=== PATIENT | male | born 1950 | race Caucasian/White ===

== ENCOUNTER 2023-11-25 08:30 | Outpatient (REF) | payer MEDICARE, SELFPAY ==
[2023-11-25 14:43] LABS: MANUAL DIFF FLAG NO
[2023-11-25 14:55] LABS: Basophils Absolute Auto 0.1 X10*3/uL (0.0-0.2); Basophils Percent Auto 0.7 % (0-2); Eosinophils Absolute Auto 0.2 X10*3/uL (0.0-0.4); Eosinophils Percent Auto 2.3 % (0-4); Hematocrit 45.5 % (42.0-52.0); Hemoglobin 14.8 g/dl (14.0-18.0); Imm Gran Abs Auto 0.03 X10*3/uL (0.00-0.03); Imm Gran Pct Auto 0.3 % (0.0-0.4); Lymphocytes Absolute Auto 3.1 X10*3/uL (1.2-4.9); Lymphocytes Percent Auto 33.2 % (20-40); Mean Corpuscular HGB Conc 32.5 g/dl (31.0-36.0); Mean Corpuscular Hemoglobin 31.2 pg (27.0-33.0); Mean Corpuscular Volume 95.8 fL (80.0-98.0); Mean Platelet Volume 11.5 fL (9.4-12.4); Monocytes Absolute Auto 0.7 X10*3/uL (0.1-1.2); Monocytes Percent Auto 7.4 % (2-11); Neutrophils Absolute Auto 5.2 x10*3/uL (2.0-8.3); Neutrophils Percent Auto 56.1 % (45-73); Platelet Count 214 X10*3/uL (160-400); Red Blood Count 4.75 X10*6/uL (4.60-5.80); Red Cell Distribution Width 13.2 % (11.0-16.0); White Blood Count 9.2 X10*3/uL (4.8-10.8)
[2023-11-25 15:19] LABS: Alanine Aminotransferase 10 U/L (0-40); Albumin Level 4.1 g/dL (3.5-5.0); Alkaline Phosphatase 56 U/L (39-117); Anion Gap 11 (12-20); Aspartate Amino Transferase 14 U/L (5-37); Bilirubin Total 0.5 mg/dL (0.0-1.0); Blood Urea Nitrogen 16 mg/dL (9-16); Calcium 9.3 mg/dL (8.4-10.2); Carbon Dioxide 26 mmol/L (22-29); Chloride 108 mmol/L (96-108); Cholesterol 162 mg/dL (<200); Estimated Glomerular Filt Rate > 60; Glucose Random 68 mg/dL (60-115); HDL Cholesterol 41 mg/dL (>40); LDL Cholesterol Calculated 109 mg/dL (<100); Potassium 3.7 mmol/L (3.3-5.1); Sodium 141 mmol/L (135-145); Total Protein 6.7 g/dL (6.5-8.0); Triglycerides 61 mg/dL (<150)
[2023-11-25 15:34] LABS: TSH reflex Free T4 2.08 uIU/mL (0.32-4.0)
[2023-11-26 08:03] LABS: ~Hepatitis C Antibody Nonreactive (Nonreactive)
== END 2023-11-25 08:31 | disposition home or self-care (01) ==
LOC: HO.CHCLDS 08:30
PROVIDERS: Visit Provider Internal Medicine
DX: K21.9 Gastro-esophageal reflux disease without esophagitis (principal)
CPT/HCPCS: 36415; 80053; 80061; 84443; 85025; 86803

== ENCOUNTER 2023-11-30 09:03 | Outpatient (AMB) | payer MEDICARE, SELFPAY ==
--- NOTE | 2023-11-30 09:19 | A.OFFVIS_ITS ---
Intake Vital Signs 11/30/23 09:29 Height 5 ft 9 in Weight 245 lb 8 oz BMI 36.3 BP 100/70 Blood Pressure Location Lt brachial Position Sitting Pulse 69 Pulse Source Pulse Oximeter Pulse Oximetry (%) 98 Oxygen Delivery Method Room Air Intake Visit Reasons: ENP-RAMANDEEP -Confirmed Intake Note: Patient presents for RAMANDEEP. patient falls asleep during the day for 2 to 3 hours without realising it Allergies No Known Allergies [No Known Allergies*] Allergy (Verified 11/30/23 09:26) Medication List - Last Reconciled 11/30/23 by Patricia Anglin CNP acetaminophen ER 650 mg PO Q8H PRN flu vac 2022 [id number]-pomVU23D(PF) 60 mcg (15 mcg x 4)/0.5 mL (Fluad Quad 2022- 2023(65yr up)(PF)) IM omeprazole 40 mg PO DAILY sertraline (Zoloft) 50 mg PO DAILY HPI HPI Comments History of Present Illness Details 73 y/o male patient presents for new in- person visit to manage sleep apnea. Pt reports he was diagnosed with RAMANDEEP in 1994. He had a repeat sleep study done in 2009, he used CPAP for a while. However his insurance did not cover CPAP and supplies, so he returned it. Pt reports he has disrupted sleep at night, wakes up several times. He is having daytime sleepiness, keep falling asleep during daytime, Sleep questionnaire: Have you ever been diagnosed with a sleep disorder? Yes. Have you ever had a sleep study in the past? Yes, twice. Have you ever been treated for a sleep disorder? CPAP. Do you take medications for a sleep disorder? No. Do you snore? Maybe. Do you wake up gasping at night? No. Do you have episodes of apneas? Yes. If yes, are they witnessed? Yes. Do you have episodes of nocturnal chest pain or dyspnea? No. Do you have difficulty initiating sleep? No. Do you have difficulty maintaining sleep? Yes. Do you wake up tired? Yes. Do you have headaches upon awakening? No. Do you wake up with dry mouth or throat? Yes. Do you have GERD? Yes. Do you have nocturia? No. Do you have nocturnal leg cramps? No. Do you have symptoms of restless legs? No. Do you act out your dreams? No. Sleep hygiene questionnaire: What is your usual sleep routine? Usual bedtime is at 1 am; Usual wake up time is at 4 am. Do you take naps? Yes. Is your sleep environment cool, dark, and quiet? Yes. Do you exercise? No. Do you take caffeine or other stimulants? Coffee in the morning. Do you use electronics in bed? Yes. What is your work schedule? N/A. Hypersomnolence questionnaire: Do you have daytime tiredness or fatigue? Yes. Do you easily fall asleep when inactive? Yes. Have you ever had episodes of sudden weakness? No. Have you ever had episodes of sudden weakness associated with strong emotions? No. PFSH Surgical History (Updated 11/30/23 @ 09:41 by Jennifer Betts CMA) History of shoulder surgery Family History (Updated 11/30/23 @ 09:43 by Jennifer Betts CMA) Father Brain cancer Mother Breast CA Brother Brain cancer Social History (Updated 11/30/23 @ 09:44 by Jennifer Betts CMA) Alcohol intake: never Patient Tobacco Use Status: Never used Tobacco Review of Systems Const All systems reviewed & are unremarkable except as noted in HPI and below Physical Exam Vital Signs: Last Vital Signs Pulse 69 11/30/23 09:29 BP 100/70 11/30/23 09:29 Pulse Ox 98 11/30/23 09:29 Oxygen Delivery Method Room Air 11/30/23 09:29 BMI result Body Mass Index 36.3 Const General: cooperative Nutritional Appearance: obese Orientation/consciousness: patient oriented x3 Neck Neck: Yes full ROM and Yes supple Resp Effort & Inspection: normal respiratory effort and able to speak in complete sentences Neuro General: patient oriented x3 and gait normal Cranial nerves: Yes CN's II-XII intact bilaterally Cognition (Neuro): normal cognition Gait exam (Neuro): Normal gait present Motor exam (neuro): 5/5 motor strength present throughout Psych Appearance: grossly normal Mental Status: mental status grossly normal Speech and movement: Normal speech and movement present Affect: normal affect Attitude: cooperative Assessment & Plan Assessment & Plan (1) Daytime sleepiness: Code(s): R40.0 - Somnolence (2) Hx of sleep apnea: Code(s): Z86.69 - Personal history of other diseases of the nervous system and sense organs Plan Pt is advised to undergo in lab sleep study to assess for sleep apnea. Will f/u with pt after study to discuss results and appropriate treatment options. Sleep hygiene education provided and wt reduction advised. Pt to call with any worsening concerns or questions. Orders: Orders RT PSG in-lab sleep study Today R40.0 - Somnolence, Z86.69 - Personal history of other diseases of the nervous system and sense organs Coding Level of Care Code New Pt Level 3 (18691) Diagnoses Daytime sleepiness R40.0 Hx of sleep apnea Z86.69
[2023-11-30 09:29] VITALS: BP 100/70; PULSE 69; O2SAT 98; BMI 36.3
== END 2023-11-30 09:50 | disposition home or self-care (01) ==
PROVIDERS: PCP Internal Medicine; Visit Provider Nurse Practitioner Family
DX: R40.0 Somnolence (principal); Z86.69 Personal history of other diseases of the nervous system and sense organs
CPT/HCPCS: 99203

== ENCOUNTER → 2023-11-30 09:03 | Outpatient (BNVA) | payer MEDICARE, SELFPAY | PROVIDERS: PCP Internal Medicine; Visit Provider Nurse Practitioner Family | DX: R40.0 Somnolence (principal); Z86.69 Personal history of other diseases of the nervous system and sense organs | CPT/HCPCS: 99202 ==

== ENCOUNTER 2023-12-03 09:12 | Outpatient (AMB) | payer MEDICARE, SELFPAY ==
--- NOTE | 2023-12-03 09:21 | A.OFFVIS_ITS ---
Intake Intake Visit Reasons: LDCT SD Allergies No Known Allergies [No Known Allergies*] Allergy (Verified 11/30/23 09:26) HPI HPI Comments History of Present Illness Details Alejandro is a pleasant 73 year old male, current 1/2-3/4 ppd smoker with a 21.5 PYH. Patient has been smoking since age 20 for 43 years at 1/2 ppd, quit for 10-15 years in 1992. Denies marijuana use. Denies exposure to chemicals or substances like asbestos. Denies second hand smoke exposure. Reports brother had lung cancer. Denies personal history of cancers. Denies chest CT in last year. Denies recent travel outside the [place]. Denies testing positive for COVID. Admits receiving COVID Vaccine x2 Denies fever, chills, chest pain, new cough, hemoptysis or unintentional weight loss. Lung Cancer Screening Questionnaire reviewed with patient by provider. Shared Decision Making Completed. Discussed in detail with patient, the risk versus benefit of LDCT screening. Patient in agreement of proceeding with scan. [facility] Surgical History (Updated 11/30/23 @ 09:41 by Jennifer Betts CMA) History of shoulder surgery Family History (Updated 11/30/23 @ 09:43 by Jennifer Betts CMA) Father Brain cancer Mother Breast CA Brother Brain cancer Social History (Updated 11/30/23 @ 09:44 by Jennifer Betts CMA) Alcohol intake: never Patient Tobacco Use Status: Never used Tobacco Assessment & Plan Assessment & Plan (1) Nicotine dependence: Code(s): F17.200 - Nicotine dependence, unspecified, uncomplicated Plan Shared decision-making visit completed today in office. This patient meets criteria for LDCT for lung cancer screening purposes and is asymptomatic. Offered smoking cessation. Patient has been scheduled for a low dose chest CT for screening purposes at [facility]. We discussed how the results will be obtained depending on CT findings. RADS 1 and RADS 2 will receive a letter with results and will follow up for annual LDCT. Patient informed they will be contacted at later date to schedule upcoming LDCT scan. RADS 3 and RADS 4 will receive a telephone call, or an office visit after reviewing case at our Lung Cancer Conference to determine when the next LDCT will be scheduled or further interventions that may be needed. Discussed importance of screening program and compliance with yearly LDCT scan as scheduled. Risks, benefits, and alternatives were discussed in detail and patient agrees to proceed. Risks discussed include but are not limited to: radiation exposure and possibility of additional intervention for benign disease. Benefits include detection of lung cancer at an early stage. A copy of today's visit and LDCT results will be sent to patient's PCP. Incidental findings on LDCT are PCP's responsibility. If there are incidental findings, our office will ensure that PCP office is aware of these findings. All questions were answered and patient is in agreement of plan. Coding Level of Care Code Lung Cancer Screening G0296 Diagnoses Nicotine dependence F17.200
== END 2023-12-03 10:18 | disposition home or self-care (01) ==
PROVIDERS: PCP Internal Medicine; Referring Provider Internal Medicine; Visit Provider Nurse Practitioner Family
DX: F17.200 Nicotine dependence, unspecified, uncomplicated (principal)
CPT/HCPCS: G0296

== ENCOUNTER 2023-12-03 09:42 | Outpatient (REF) | payer MEDICARE, SELFPAY ==
--- NOTE | ~2023-12-03 | CT_ITS ---
EXAMINATION: CT CHEST SCREENING CLINICAL INFORMATION: 50 pack-years currently smoking 1 pack per day. Screening study. COMPARISON: None available. TECHNIQUE: Multidetector volumetric CT imaging of the chest is performed without contrast using low dose technique. Additional 2D coronal and sagittal reformatted images and axial 3D maximum intensity projection (MIP) images are generated on the CT workstation. This CT examination was performed using dose optimization techniques as appropriate, variously including the following: *Automated exposure control *Adjustment of mA and/or kV according to patient size (this includes techniques or standardized protocols for targeted exams where dose is matched to indication/reason for exam; i.e. extremities or head) *Use of iterative reconstruction technique DLP: 54 mGy-cm FINDINGS: LUNGS: Some biapical pleuroparenchymal scarring is noted. No pulmonary nodules are seen. Mild emphysematous changes are present. MEDIASTINUM: The mediastinum is normal. CORONARY ARTERY CALCIFICATION: None visualized on this study. PLEURA: There is no pleural effusion. No pleural mass or thickening. AXILLA: No lymphadenopathy. UPPER ABDOMEN: 2 benign simple hepatic cysts are seen. Abdomen is otherwise unremarkable. OSSEOUS STRUCTURES: Unremarkable. CT/CT lung screening IMPRESSION: Unremarkable examination. ASSESSMENT: Lung-RADS category 1: Negative RECOMMENDATION: Routine annual low-dose CT screening in 12 months.
== END 2023-12-03 09:43 | disposition home or self-care (01) ==
LOC: HO.CT 09:42
PROVIDERS: PCP Internal Medicine; Visit Provider Nurse Practitioner Family
DX: F17.210 Nicotine dependence, cigarettes, uncomplicated (principal)
CPT/HCPCS: 71271; G0296

== ENCOUNTER 2024-12-01 08:27 | Outpatient (REF) | payer MEDICARE, SELFPAY ==
[2024-12-01 14:17] LABS: MANUAL DIFF FLAG NO
[2024-12-01 14:22] LABS: Basophils Absolute Auto 0.1 X10*3/uL (0.0-0.2); Basophils Percent Auto 0.8 % (0-2); Eosinophils Absolute Auto 0.2 X10*3/uL (0.0-0.4); Eosinophils Percent Auto 2.3 % (0-4); Hematocrit 43.6 % (42.0-52.0); Hemoglobin 14.7 g/dl (14.0-18.0); Imm Gran Abs Auto 0.01 X10*3/uL (0.00-0.03); Imm Gran Pct Auto 0.1 % (0.0-0.4); Lymphocytes Absolute Auto 2.8 X10*3/uL (1.2-4.9); Lymphocytes Percent Auto 36.1 % (20-40); Mean Corpuscular HGB Conc 33.7 g/dl (31.0-36.0); Mean Corpuscular Hemoglobin 32.2 pg (27.0-33.0); Mean Corpuscular Volume 95.4 fL (80.0-98.0); Mean Platelet Volume 11.6 fL (9.4-12.4); Monocytes Absolute Auto 0.6 X10*3/uL (0.1-1.2); Monocytes Percent Auto 7.6 % (2-11); Neutrophils Absolute Auto 4.1 x10*3/uL (2.0-8.3); Neutrophils Percent Auto 53.1 % (45-73); Platelet Count 210 X10*3/uL (160-400); Red Blood Count 4.57 X10*6/uL (4.60-5.80); Red Cell Distribution Width 13.1 % (11.0-16.0); White Blood Count 7.7 X10*3/uL (4.8-10.8)
[2024-12-01 14:47] LABS: Alanine Aminotransferase 26 U/L (0-40); Alkaline Phosphatase 63 U/L (39-117); Anion Gap 9 (12-20); Aspartate Amino Transferase 30 U/L (5-37); Bilirubin Total 0.4 mg/dL (0.0-1.0); Blood Urea Nitrogen 14 mg/dL (9-16); Calcium 9.1 mg/dL (8.4-10.2); Carbon Dioxide 27 mmol/L (22-29); Chloride 111 mmol/L (96-108); Cholesterol 172 mg/dL (<200); Estimated Glomerular Filt Rate > 60; Glucose Random 88 mg/dL (60-115); HDL Cholesterol 41 mg/dL (>40); LDL Cholesterol Calculated 121 mg/dL (<100); Potassium 4.2 mmol/L (3.3-5.1); Sodium 143 mmol/L (135-145); Total Protein 6.8 g/dL (6.5-8.0); Triglycerides 51 mg/dL (<150)
[2024-12-01 14:55] LABS: PSA,Total (Free>4and<10) 0.99 ng/mL (0.00-4.00)
[2024-12-01 15:04] LABS: TSH reflex Free T4 2.29 uIU/mL (0.32-4.0)
== END 2024-12-01 08:28 | disposition home or self-care (01) ==
LOC: HO.CHCLDS 08:27
PROVIDERS: Visit Provider Internal Medicine
DX: K21.9 Gastro-esophageal reflux disease without esophagitis (principal); Z12.5 Encounter for screening for malignant neoplasm of prostate
CPT/HCPCS: 36415; 80053; 80061; 84153; 84443; 85025